=== PATIENT | male | born 1975 | race Hispanic/Latino ===

== ENCOUNTER 2024-02-22 08:00 | Inpatient (IN) | payer BC ==
[2024-02-22] VITALS (13 sets, daily range): BP systolic 125–152; BP diastolic 77–97; PULSE 67–91; RESP 16–20; O2SAT 95–99
[~2024-02-22] VITALS: Ht 167.6 cm; Wt 130.5 kg
[2024-02-22] MEDS ORDERED: NITROGLYCERIN 50MG VIAL ONE (09:44)
[2024-02-22] MEDS ORDERED: HEPARIN 10,000 UNIT/10ML (1,000 UNIT/ML) VIAL ONE (09:44)
[2024-02-22] MEDS ORDERED: LIDOCAINE HCL 400MG/20ML VIAL ONE (09:44)
[2024-02-22] MEDS ORDERED: IOHEXOL 350 MG/ML 100ML INFUS..BTL IV ONE (09:44)
[2024-02-22] MEDS ORDERED: VERAPAMIL HCL 2.5 MG/ML VIAL ONE (09:56)
[2024-02-22] MEDS ORDERED: MIDAZOLAM HCL 1 MG/ML 2ML VIAL ONE (10:21)
[2024-02-22] MEDS ORDERED: FENTANYL CITRATE PF 50 MCG/1 ML 2ML VIAL ONE (10:21)
[2024-02-22] MEDS ORDERED: NICARDIPINE 25MG INJ IV ONE (10:45)
[2024-02-22] MEDS ORDERED: GLUCAGON 1MG KIT 1 MG ML IM PRN (12:00)
[2024-02-22] MEDS ORDERED: DEXTROSE 50%-WATER 50 ML DISP.SYRIN IV PRN (12:00)
[2024-02-22] MEDS: 0.9%NACL 1000ML 1,000 ML IV SCH (14:03)
[2024-02-22] MEDS: METOPROLOL TARTRATE 25 MG TAB PO SCH (14:03)
[2024-02-22] MEDS ORDERED: METF750T46 PO (14:05)
[2024-02-22] MEDS ORDERED: LISI40TA9 PO (14:05)
[2024-02-22] MEDS ORDERED: HYDR12.54 (14:05)
[2024-02-22] MEDS: POTASSIUM CHLORIDE 10% ELIXIR 20 MEQ/15 ML UDCUP ONE (14:07)
[2024-02-22] MEDS ORDERED: NITROGLYCERIN 0.4 MG SL TAB SL PRN (15:30)
[2024-02-22 15:54] LABS: BASOPHILS # (AUTO) 0.04 K/uL (0.00-0.20); BASOPHILS % (AUTO) 0.4 % (0.0-5.0); EOSINOPHILS # (AUTO) 0.17 K/uL (0.00-0.70); EOSINOPHILS % (AUTO) 1.9 % (0.0-8.0); HEMATOCRIT 41.5 % (42-54); IMMATURE GRANULOCYTE ABSOLUTE 0.03 K/uL (0-1); LYMPHOCYTES # (AUTO) 2.3 K/uL (1.0-4.8); LYMPHOCYTES % (AUTO) 24.9 % (21.0-51.0); MEAN CORPUSCULAR HEMOGLOBIN 28.9 pg (27.0-33.0); MEAN CORPUSCULAR HGB CONC 33.7 g/dL (32.0-36.0); MEAN CORPUSCULAR VOLUME 85.7 fL (79-99); MONOCYTES # (AUTO) 0.7 K/uL (0.1-1.0); MONOCYTES % (AUTO) 7.9 % (3.0-13.0); NEUTROPHILS # (AUTO) 5.8 K/uL (1.8-7.7); NEUTROPHILS % (AUTO) 64.6 % (40.0-77.0); PLATELET COUNT (AUTO) 226 K/uL (130-400); RED BLOOD CELL COUNT(AUTO) 4.84 MIL/uL (4.50-6.20); RED CELL DISTRIBUTION WIDTH 13.6 % (11.0-15.5)
[2024-02-22 16:05] LABS: INR 1.04 (0.85-1.15); PROTHROMBIN TIME 11.2 SEC (9.6-11.6)
[2024-02-22 16:06] LABS: PARTIAL THROMBOPLASTIN TIME 29.1 SEC (26.3-35.5)
[2024-02-22 16:12] LABS: HEMOGLOBIN A1C 9.3 % (4.0-6.0)
[2024-02-22 16:17] LABS: ALBUMIN 3.5 g/dL (3.5-5.0); BILIRUBIN,TOTAL 1.1 mg/dL (0.2-1.0); CREATININE 1.1 mg/dL (0.5-1.3); MAGNESIUM 1.7 mg/dL (1.80-2.40); POTASSIUM 3.5 mmol/L (3.5-5.1); THYROID STIMULATING HORMONE 2.23 uIU/mL (0.36-3.74); TOTAL PROTEIN, SERUM 6.9 g/dL (6.0-8.3)
[2024-02-22] MEDS ORDERED: HEPARIN 5,000 UNIT VIAL IV PRN (16:30)
[2024-02-22] MEDS: INSULIN HUMULIN R 100 UNIT/ML 3ML SQ SCH (16:47)
[2024-02-22] MEDS: MAGNESIUM 2GM PREMIX 50ML 50 ML IV SCH (16:53)
[2024-02-22] MEDS: POTASSIUM CHLORIDE 10% ELIXIR 20 MEQ/15 ML UDCUP PO PRN (16:53)
[2024-02-22] MEDS ORDERED: POTASSIUM CHLORIDE 20MEQ/100ML 100 ML IV PRN (17:00)
[2024-02-22] MEDS: ATORVASTATIN 20 MG TABLET PO SCH (20:01)
[2024-02-22] MEDS: FAMOTIDINE 20MG VIAL IV SCH (20:02)
[2024-02-22] MEDS: HEPARIN 25,000 UNITS/250ML D5W 250 ML IV SCH (20:16)
[2024-02-23] VITALS (8 sets, daily range): BP systolic 133–171; BP diastolic 76–109; PULSE 67–89; RESP 18–22; O2SAT 96–98
[2024-02-23 03:27] LABS: ABG BASE EXCESS 2.5 mmol/L (-2.0-3.0); ABG HCO3 26.5 mmol/L (21.0-28.0); ABG OXYGEN SATURATION 94.7 % (95.0-99.0); ABG PCO2 39 mmHg (35-48); ABG PH 7.453 (7.35-7.450); PO2, ARTERIAL BG 69.3 mmHg (83.0-108.0); VENT MODE, BG RA (ROOM AIR)
[2024-02-23 03:37] LABS: BASOPHILS # (AUTO) 0.05 K/uL (0.00-0.20); BASOPHILS % (AUTO) 0.5 % (0.0-5.0); EOSINOPHILS # (AUTO) 0.34 K/uL (0.00-0.70); EOSINOPHILS % (AUTO) 3.2 % (0.0-8.0); HEMATOCRIT 40.9 % (42-54); IMMATURE GRANULOCYTE ABSOLUTE 0.04 K/uL (0-1); LYMPHOCYTES # (AUTO) 3.2 K/uL (1.0-4.8); LYMPHOCYTES % (AUTO) 29.8 % (21.0-51.0); MEAN CORPUSCULAR HEMOGLOBIN 29.6 pg (27.0-33.0); MEAN CORPUSCULAR HGB CONC 34.7 g/dL (32.0-36.0); MEAN CORPUSCULAR VOLUME 85.2 fL (79-99); MONOCYTES # (AUTO) 0.6 K/uL (0.1-1.0); NEUTROPHILS # (AUTO) 6.4 K/uL (1.8-7.7); NEUTROPHILS % (AUTO) 60.1 % (40.0-77.0); PLATELET COUNT (AUTO) 215 K/uL (130-400); RED CELL DISTRIBUTION WIDTH 13.4 % (11.0-15.5); WHITE BLOOD COUNT (AUTO) 10.7 K/uL (4.8-10.8)
[2024-02-23 03:51] LABS: ALBUMIN 3.4 g/dL (3.5-5.0); BILIRUBIN,TOTAL 1.2 mg/dL (0.2-1.0); CREATININE 1.2 mg/dL (0.5-1.3); MAGNESIUM 2.1 mg/dL (1.80-2.40); POTASSIUM 3.7 mmol/L (3.5-5.1)
[2024-02-23] MEDS: KCL 20 MEQ ERTAB PO PRN (06:26)
[2024-02-23] MEDS: ASPIRIN 81MG CHEW TAB PO SCH (09:40)
[2024-02-23] MEDS: FUROSEMIDE 20MG VIAL IV SCH (09:41)
[2024-02-23] MEDS: ISOSORBIDE MONO 30MG SR TAB PO SCH (09:41)
[2024-02-23] MEDS: LISINOPRIL 40 MG TABLET PO SCH (10:18)
[2024-02-24] VITALS (7 sets, daily range): BP systolic 133–164; BP diastolic 85–98; PULSE 60–95; RESP 18; O2SAT 99
[2024-02-24 03:56] LABS: MEAN CORPUSCULAR HEMOGLOBIN 29.2 pg (27.0-33.0); MEAN CORPUSCULAR HGB CONC 34.1 g/dL (32.0-36.0); MEAN CORPUSCULAR VOLUME 85.4 fL (79-99); RED BLOOD CELL COUNT(AUTO) 4.8 MIL/uL (4.50-6.20); RED CELL DISTRIBUTION WIDTH 13.4 % (11.0-15.5); WHITE BLOOD COUNT (AUTO) 8.5 K/uL (4.8-10.8)
[2024-02-24 04:10] LABS: ALBUMIN 3.5 g/dL (3.5-5.0); BILIRUBIN,TOTAL 1.1 mg/dL (0.2-1.0); CREATININE 1.1 mg/dL (0.5-1.3); POTASSIUM 3.7 mmol/L (3.5-5.1)
[2024-02-24] MEDS: BUDESONIDE 0.25 MG/2 ML INH IH SCH (06:00)
[2024-02-24] MEDS ORDERED: LISINOPRIL 40 MG TABLET PO SCH (09:00)
[2024-02-24] MEDS: FUROSEMIDE 20 MG TABLET PO SCH (09:49)
[2024-02-24] MEDS: PREDNISONE 20 MG TABLET PO SCH (09:51)
[2024-02-24] MEDS: CEFAZOLIN SODIUM 1 GM VIAL IVPB SCH (22:00)
[2024-02-24] MEDS ORDERED: VANCOMYCIN 1.5 GM/250 ML BAG 250 ML IV SCH (22:30)
[2024-02-25] VITALS (21 sets, daily range): BP systolic 110–167; BP diastolic 44–107; PULSE 65–122; RESP 12–27; TEMP 97.2; O2SAT 96–100
[2024-02-25 03:56] LABS: HEMATOCRIT 41.9 % (42-54); MEAN CORPUSCULAR HGB CONC 33.9 g/dL (32.0-36.0); MEAN CORPUSCULAR VOLUME 85.5 fL (79-99); RED BLOOD CELL COUNT(AUTO) 4.9 MIL/uL (4.50-6.20); RED CELL DISTRIBUTION WIDTH 13.2 % (11.0-15.5); WHITE BLOOD COUNT (AUTO) 9.3 K/uL (4.8-10.8)
[2024-02-25 04:05] LABS: CREATININE 1.2 mg/dL (0.5-1.3); INR 1.05 (0.85-1.15); POTASSIUM 3.6 mmol/L (3.5-5.1); PROTHROMBIN TIME 11.3 SEC (9.6-11.6)
[2024-02-25 04:06] LABS: PARTIAL THROMBOPLASTIN TIME 68.3 SEC (26.3-35.5)
[2024-02-25 04:10] LABS: ALBUMIN 3.6 g/dL (3.5-5.0); BILIRUBIN,TOTAL 1.2 mg/dL (0.2-1.0); MAGNESIUM 1.9 mg/dL (1.80-2.40); PHOSPHORUS 3.6 mg/dL (2.5-4.9); TOTAL PROTEIN, SERUM 7.1 g/dL (6.0-8.3)
[2024-02-25 04:12] LABS: HEMOGLOBIN A1C 9.7 % (4.0-6.0)
[2024-02-25] MEDS ORDERED: NOREPINEPHRIN 8MG/250ML NS 250 ML IV PRN (09:00)
[2024-02-25] MEDS ORDERED: VANCOMYCIN 1.5 GM/250 ML BAG 250 ML IV SCH (09:00)
[2024-02-25] MEDS ORDERED: AMINOCAPROIC ACID 5,000MG VIAL 15,000 MG in 0.9% NACL 500ML IV.SOLN 420 ML IV PRN (09:00)
[2024-02-25] MEDS ORDERED: EPINEPHRINE PF 1MG (1:1,000) 10 MG in 0.9% NACL 250ML 240 ML IV PRN ×2 (09:00→17:30)
[2024-02-25] MEDS ORDERED: CEFAZOLIN SODIUM 1 GM VIAL ONE ×2 (09:04→17:55)
[2024-02-25] MEDS ORDERED: PAPAVERINE HCL 30 MG/ML 2ML VIAL ONE (09:04)
[2024-02-25] MEDS ORDERED: NITROGLYCERIN 50MG/D5W 250ML 1 BOT ONE (09:05)
[2024-02-25] MEDS ORDERED: SODIUM BICARB 50MEQ 50ML VIAL 200 ML ONE (17:05)
[2024-02-25] MEDS ORDERED: EPINEPHRINE PF 1MG (1:1,000) 1 MG/ML AMP ONE (17:05)
[2024-02-25] MEDS ORDERED: LIDOCAINE PF 100MG/5ML (2%) SYRINGE 5ML ONE (17:05)
[2024-02-25] MEDS ORDERED: HEPARIN 10,000 UNIT/10ML (1,000 UNIT/ML) VIAL ONE ×4 (17:05→19:09)
[2024-02-25] MEDS ORDERED: PROTAMINE SULFATE 10 MG/ML 25ML VIAL IV ONE (17:05)
[2024-02-25] MEDS ORDERED: FENTANYL CITRATE PF 50 MCG/1 ML 20ML VIAL IJ ONE (17:06)
[2024-02-25] MEDS ORDERED: PROPOFOL 10 MG/ML 20ML VIAL IV ONE (17:06)
[2024-02-25] MEDS ORDERED: MIDAZOLAM HCL 1 MG/ML 2ML VIAL ONE (17:06)
[2024-02-25] MEDS ORDERED: AMINOCAPROIC ACID 5,000MG VIAL ONE (17:06)
[2024-02-25] MEDS ORDERED: GLYCOPYRROLATE 0.2 MG/ML 5 ML VIAL ONE (17:06)
[2024-02-25] MEDS ORDERED: NOREPINEPHRINE BITARTRATE 1 MG/1 ML ML IV ONE (17:06)
[2024-02-25] MEDS ORDERED: ROCURONIUM BROMIDE 10MG/1ML 5ML VL ONE (17:07)
[2024-02-25] MEDS ORDERED: KETAMINE 50MG/ML SYRINGE 50 MG/ML DISP.SYRIN ONE ×2 (17:07→20:27)
[2024-02-25] MEDS ORDERED: NITROGLYCERIN 50MG/D5W 250ML 250 BOT IV SCH (17:30)
[2024-02-25] MEDS ORDERED: GLUCAGON 1MG KIT 1 MG ML IM PRN (17:30)
[2024-02-25] MEDS ORDERED: LACTULOSE 20 GM/30 ML UDCUP PO PRN (17:30)
[2024-02-25] MEDS ORDERED: AMINOCAPROIC ACID 5,000MG VIAL 15,000 MG in 0.9% NACL 250ML 250 ML IV SCH (17:30)
[2024-02-25] MEDS ORDERED: PROPOFOL 1000 MG/100 ML 100 ML IV PRN (17:30)
[2024-02-25] MEDS ORDERED: DEXTROSE 50%-WATER 50 ML DISP.SYRIN IV PRN (17:30)
[2024-02-25] MEDS ORDERED: ALBUMIN (HUMAN) 5% 250 ML IV PRN (17:30)
[2024-02-25] MEDS ORDERED: 0.9% NACL 500ML IV.SOLN 500 ML IV SCH (17:30)
[2024-02-25] MEDS ORDERED: ACETAMINOPHEN 325 MG TAB PO PRN (17:30)
[2024-02-25] MEDS: FUROSEMIDE 20MG VIAL IV SCH (17:30)
[2024-02-25] MEDS ORDERED: MAGNESIUM HYDROXIDE 30 ML/UDCUP PO PRN (17:30)
[2024-02-25] MEDS ORDERED: ONDANSETRON 4MG INJ IV PRN (17:30)
[2024-02-25] MEDS ORDERED: 0.9%NACL 10ML VIAL IVP PRN (17:30)
[2024-02-25] MEDS ORDERED: MORPHINE 2 MG SYG IV PRN (17:30)
[2024-02-25] MEDS ORDERED: TRAMADOL HCL 50 MG TABLET PO PRN (17:30)
[2024-02-25] MEDS ORDERED: NOREPINEPHRINE BITARTRATE 8 MG in DEXTROSE 5%-WATER 250 ML IV PRN (17:30)
[2024-02-25] MEDS ORDERED: ACETAMINOPHEN 650 MG SUPPOSITORY RC PRN (17:30)
[2024-02-25] MEDS: CEFAZOLIN SODIUM 3 GM VIAL IVPB ONE (18:00)
[2024-02-25] MEDS ORDERED: TRIAMCINOLONE ACETONIDE 40 MG/ML 1ML VIAL ONE (18:06)
[2024-02-25] MEDS ORDERED: SOLU-MEDROL 40MG VIAL ONE (18:06)
[2024-02-25 18:13] LABS: ABG BASE EXCESS -8.8 mmol/L (-2.0-3.0); ABG HCO3 17.1 mmol/L (21.0-28.0); ABG OXYGEN SATURATION 97.7 % (95.0-99.0); ABG PCO2 37 mmHg (35-48); ABG PH 7.284 (7.35-7.450); CARBON MONOXIDE 0.5; DEVICE COMMENT 1; HHb 2.3; PO2, ARTERIAL BG 115.8 mmHg (83.0-108.0)
[2024-02-25] MEDS ORDERED: SODIUM BICARB 50MEQ 50ML VIAL 100 ML ONE (18:19)
[2024-02-25 19:00] LABS: ABG BASE EXCESS -4.3 mmol/L (-2.0-3.0); ABG OXYGEN SATURATION 97.6 % (95.0-99.0); ABG PCO2 39 mmHg (35-48); ABG PH 7.344 (7.35-7.450); CARBON MONOXIDE 0.1; DEVICE COMMENT 2; HHb 2.4; PO2, ARTERIAL BG 109.1 mmHg (83.0-108.0)
[2024-02-25 19:47] LABS: ABG OXYGEN SATURATION 84.4 % (95.0-99.0); BASE EXCESS,VENOUS BLOOD GAS -4.1 (-2.0-3.0); DEVICE COMMENT 3; HCO3,VENOUS BLOOD GAS 22.9 (21.0-28.0); PCO2,VENOUS BLOOD GAS 49 (32-45); PH,VENOUS BLOOD GAS 7.286 (7.350-7.450); PO2,VENOUS BLOOD GAS 53.9 mmHg (35.0-45.0)
[2024-02-25 20:23] LABS: ABG BASE EXCESS -4.4 mmol/L (-2.0-3.0); ABG HCO3 20.2 mmol/L (21.0-28.0); ABG OXYGEN SATURATION 96.6 % (95.0-99.0); ABG PCO2 36 mmHg (35-48); CARBON MONOXIDE 0.1; DEVICE COMMENT 3; HHb 3.4; PO2, ARTERIAL BG 94.6 mmHg (83.0-108.0)
[2024-02-25] MEDS ORDERED: MIDAZOLAM HCL 1 MG/ML 5ML VIAL ONE (20:27)
[2024-02-25] MEDS: METOPROLOL TARTRATE 25 MG TAB PO SCH (21:00)
[2024-02-25 21:01] LABS: ABG BASE EXCESS -5.9 mmol/L (-2.0-3.0); ABG HCO3 20.2 mmol/L (21.0-28.0); ABG OXYGEN SATURATION 95.2 % (95.0-99.0); ABG PCO2 42 mmHg (35-48); CARBON MONOXIDE 0.4; HHb 4.8; PO2, ARTERIAL BG 90.2 mmHg (83.0-108.0); VENT MODE, BG SIMV PS 10 (ROOM AIR)
[2024-02-25] MEDS: SODIUM BICARB 50MEQ 50ML VIAL IV PRN (21:06)
[2024-02-25] MEDS: POTASSIUM CHLORIDE 20MEQ/100ML 100 ML IV PRN (21:09)
[2024-02-25 21:13] LABS: HEMATOCRIT 36.7 % (42-54); MEAN CORPUSCULAR HEMOGLOBIN 28.9 pg (27.0-33.0); MEAN CORPUSCULAR HGB CONC 34.1 g/dL (32.0-36.0); RED BLOOD CELL COUNT(AUTO) 4.32 MIL/uL (4.50-6.20); RED CELL DISTRIBUTION WIDTH 13.3 % (11.0-15.5); WHITE BLOOD COUNT (AUTO) 25.1 K/uL (4.8-10.8)
[2024-02-25 21:25] LABS: INR 1.18 (0.85-1.15); PROTHROMBIN TIME 12.6 SEC (9.6-11.6)
[2024-02-25 21:26] LABS: CREATININE 1.3 mg/dL (0.5-1.3); MAGNESIUM 1.7 mg/dL (1.80-2.40); PARTIAL THROMBOPLASTIN TIME 22.6 SEC (26.3-35.5); PHOSPHORUS 6.9 mg/dL (2.5-4.9)
[2024-02-25] MEDS: INSULIN REGULAR, HUMAN 3ML 100 UNIT in 0.9%NACL 100ML 99 ML IV SCH (22:00)
[2024-02-25] MEDS: MORPHINE 4 MG SYG IV PRN (22:06)
[2024-02-25 22:12] LABS: ABG BASE EXCESS -4.9 mmol/L (-2.0-3.0); ABG HCO3 20.8 mmol/L (21.0-28.0); ABG OXYGEN SATURATION 95.7 % (95.0-99.0); ABG PCO2 41 mmHg (35-48); ABG PH 7.326 (7.35-7.450); CARBON MONOXIDE 0.5; HHb 4.3; PO2, ARTERIAL BG 89.9 mmHg (83.0-108.0); VENT MODE, BG SIMV PS10 (ROOM AIR)
[2024-02-25] MEDS: CEFAZOLIN SODIUM 2 GM VIAL IVPB SCH (22:57)
[2024-02-25] MEDS: DEXMEDETOMIDINE 400MCG/NS100ML IV SCH (22:57)
[2024-02-25] MEDS: ACETAMINOPHEN 1,000 MG/100 ML VIAL IV SCH (22:58)
[2024-02-25] MEDS: FAMOTIDINE 20MG VIAL IV SCH (22:58)
[2024-02-25] MEDS: DOCUSATE SODIUM 100 MG CAP PO ONE (22:59)
[2024-02-25] MEDS: ASPIRIN 81MG CHEW TAB NG ONE (22:59)
[2024-02-25] MEDS: ATORVASTATIN 40 MG TABLET PO SCH (22:59)
[2024-02-25 23:15] LABS: ABG BASE EXCESS -6.3 mmol/L (-2.0-3.0); ABG HCO3 19.1 mmol/L (21.0-28.0); ABG OXYGEN SATURATION 94.9 % (95.0-99.0); ABG PCO2 38 mmHg (35-48); ABG PH 7.322 (7.35-7.450); CARBON MONOXIDE 0.5; HHb 5.1; PO2, ARTERIAL BG 84.2 mmHg (83.0-108.0); VENT MODE, BG SIMV (ROOM AIR)
[2024-02-25] MEDS: CALCIUM GLUC 1GM 1 GM in 0.9%NACL 50ML 50 ML IV PRN (23:24)
[2024-02-26] VITALS (135 sets, daily range): BP systolic 88–163; BP diastolic 57–136; PULSE 91–122; RESP 5–45; TEMP 98.4–99.9; O2SAT 96–100
[2024-02-26 00:02] LABS: ABG BASE EXCESS -3.8 mmol/L (-2.0-3.0); ABG HCO3 20.4 mmol/L (21.0-28.0); ABG OXYGEN SATURATION 98.2 % (95.0-99.0); ABG PCO2 34 mmHg (35-48); CARBON MONOXIDE 0.2; HHb 1.8; PO2, ARTERIAL BG 140.5 mmHg (83.0-108.0); VENT MODE, BG SIMV PS 10 (ROOM AIR)
[2024-02-26 01:06] LABS: ABG BASE EXCESS -3.7 mmol/L (-2.0-3.0); ABG HCO3 20.6 mmol/L (21.0-28.0); ABG PCO2 35 mmHg (35-48); ABG PH 7.387 (7.35-7.450); CARBON MONOXIDE 0.3; PO2, ARTERIAL BG 274.1 mmHg (83.0-108.0); VENT MODE, BG SIMV PS 10 (ROOM AIR)
[2024-02-26 02:03] LABS: ABG BASE EXCESS -3.2 mmol/L (-2.0-3.0); ABG HCO3 20.8 mmol/L (21.0-28.0); ABG OXYGEN SATURATION 98.6 % (95.0-99.0); ABG PCO2 34 mmHg (35-48); ABG PH 7.402 (7.35-7.450); CARBON MONOXIDE 0.1; HHb 1.4; PO2, ARTERIAL BG 183.7 mmHg (83.0-108.0); VENT MODE, BG SIMV PS 10 (ROOM AIR)
[2024-02-26] MEDS: CALCIUM GLUC 1GM/10ML VIAL ONE ×3 (02:08→09:12)
[2024-02-26] MEDS: POTASSIUM CHLORIDE 10% ELIXIR 20 MEQ/15 ML UDCUP PO PRN (02:09)
[2024-02-26 03:01] LABS: ABG BASE EXCESS -1.5 mmol/L (-2.0-3.0); ABG HCO3 22.3 mmol/L (21.0-28.0); ABG OXYGEN SATURATION 98.7 % (95.0-99.0); ABG PCO2 35 mmHg (35-48); ABG PH 7.424 (7.35-7.450); CARBON MONOXIDE 0.3; HHb 1.3; PO2, ARTERIAL BG 202.7 mmHg (83.0-108.0); VENT MODE, BG SIMV PS 10 (ROOM AIR)
[2024-02-26 04:00] LABS: ABG HCO3 23.8 mmol/L (21.0-28.0); ABG OXYGEN SATURATION 98.3 % (95.0-99.0); ABG PCO2 36 mmHg (35-48); ABG PH 7.436 (7.35-7.450); CARBON MONOXIDE 0.3; HHb 1.7; PO2, ARTERIAL BG 155.1 mmHg (83.0-108.0); VENT MODE, BG SIMV PS 10 (ROOM AIR)
[2024-02-26 04:57] LABS: HEMATOCRIT 37.4 % (42-54); MEAN CORPUSCULAR HGB CONC 34.2 g/dL (32.0-36.0); MEAN CORPUSCULAR VOLUME 84.6 fL (79-99); RED BLOOD CELL COUNT(AUTO) 4.42 MIL/uL (4.50-6.20); RED CELL DISTRIBUTION WIDTH 13.7 % (11.0-15.5); WHITE BLOOD COUNT (AUTO) 22.5 K/uL (4.8-10.8)
[2024-02-26 05:08] LABS: ABG BASE EXCESS 2.6 mmol/L (-2.0-3.0); ABG HCO3 26.3 mmol/L (21.0-28.0); ABG PCO2 38 mmHg (35-48); ABG PH 7.461 (7.35-7.450); CARBON MONOXIDE 0.3; PO2, ARTERIAL BG 95.4 mmHg (83.0-108.0); VENT MODE, BG SIMV PS 10 (ROOM AIR)
[2024-02-26 05:15] LABS: INR 1.08 (0.85-1.15); PROTHROMBIN TIME 11.6 SEC (9.6-11.6)
[2024-02-26 05:16] LABS: PARTIAL THROMBOPLASTIN TIME 22.1 SEC (26.3-35.5)
[2024-02-26 05:22] LABS: CREATININE 1.8 mg/dL (0.5-1.3); MAGNESIUM 1.8 mg/dL (1.80-2.40); POTASSIUM 3.7 mmol/L (3.5-5.1)
[2024-02-26 05:24] LABS: PHOSPHORUS 0.9 mg/dL (2.5-4.9)
[2024-02-26] MEDS: MAGNESIUM 2GM PREMIX 50ML 50 ML IV PRN (06:29)
[2024-02-26] MEDS ORDERED: MORPHINE 2 MG SYG IV PRN (06:30)
[2024-02-26] MEDS: POTASSIUM PHOS 15 mMOL+NS250ML 250 ML IV PRN (06:35)
[2024-02-26 06:43] LABS: ABG BASE EXCESS 3.8 mmol/L (-2.0-3.0); ABG HCO3 27.1 mmol/L (21.0-28.0); ABG OXYGEN SATURATION 97.4 % (95.0-99.0); ABG PCO2 37 mmHg (35-48); ABG PH 7.488 (7.35-7.450); CARBON MONOXIDE 0.3; HHb 2.6; PO2, ARTERIAL BG 101.7 mmHg (83.0-108.0); VENT MODE, BG SIMV (ROOM AIR)
[2024-02-26 08:10] LABS: ABG BASE EXCESS 3.7 mmol/L (-2.0-3.0); ABG HCO3 28.4 mmol/L (21.0-28.0); ABG OXYGEN SATURATION 94.7 % (95.0-99.0); ABG PCO2 43 mmHg (35-48); ABG PH 7.434 (7.35-7.450); CARBON MONOXIDE 0.4; HHb 5.3; PO2, ARTERIAL BG 74.7 mmHg (83.0-108.0); VENT MODE, BG CAFM (ROOM AIR)
[2024-02-26 08:41] LABS: MAGNESIUM 2.2 mg/dL (1.80-2.40)
[2024-02-26] MEDS: 0.9%NACL 1000ML 1,000 ML IV SCH (09:14)
[2024-02-26] MEDS: NOREPINEPHRIN 8MG/250ML NS 250 ML IV SCH (11:33)
[2024-02-26] MEDS: NOREPINEPHRIN 8MG/250ML NS 250 ML IV ONE (11:34)
[2024-02-26] MEDS: TRAMADOL HCL 50 MG TABLET PO PRN (12:14)
[2024-02-26] MEDS: ACETAMINOPHEN 325 MG TAB PO PRN (23:01)
[2024-02-27] VITALS (139 sets, daily range): BP systolic 83–230; BP diastolic 45–201; PULSE 81–113; RESP 4–39; TEMP 98.2–99.4; O2SAT 92–94
[2024-02-27 03:12] LABS: HEMATOCRIT 32.8 % (42-54); MEAN CORPUSCULAR HEMOGLOBIN 29.2 pg (27.0-33.0); MEAN CORPUSCULAR HGB CONC 33.8 g/dL (32.0-36.0); MEAN CORPUSCULAR VOLUME 86.3 fL (79-99); RED BLOOD CELL COUNT(AUTO) 3.8 MIL/uL (4.50-6.20); RED CELL DISTRIBUTION WIDTH 14.6 % (11.0-15.5); WHITE BLOOD COUNT (AUTO) 16.6 K/uL (4.8-10.8)
[2024-02-27 03:26] LABS: CREATININE 1.2 mg/dL (0.5-1.3); MAGNESIUM 1.7 mg/dL (1.80-2.40); PHOSPHORUS 4.1 mg/dL (2.5-4.9); POTASSIUM 3.6 mmol/L (3.5-5.1)
[2024-02-27] MEDS: ACETAMINOPHEN 1,000 MG/100 ML VIAL IV ONE (04:27)
[2024-02-27] MEDS: INSULIN HUMULIN R 100 UNIT/ML 3ML SQ SCH (07:19)
[2024-02-27] MEDS: FUROSEMIDE 20MG VIAL IV SCH (08:07)
[2024-02-27] MEDS ORDERED: FUROSEMIDE 20 MG TABLET PO SCH (09:00)
[2024-02-27] MEDS ORDERED: MAGNESIUM 2GM PREMIX 50ML 50 ML IV SCH (11:00)
[2024-02-27] MEDS: FUROSEMIDE 20MG VIAL IV ONE (21:23)
[2024-02-27] MEDS: DOCUSATE SODIUM 100 MG CAP PO ONE (21:23)
[2024-02-27] MEDS: METOPROLOL TARTRATE 25 MG TAB PO SCH (21:24)
[2024-02-28] VITALS (69 sets, daily range): BP systolic 114–179; BP diastolic 54–105; PULSE 82–105; RESP 4–30; TEMP 98.4–99.3; O2SAT 94–97
[2024-02-28 03:40] LABS: HEMATOCRIT 36.9 % (42-54); MEAN CORPUSCULAR HEMOGLOBIN 29.6 pg (27.0-33.0); MEAN CORPUSCULAR HGB CONC 32.8 g/dL (32.0-36.0); MEAN CORPUSCULAR VOLUME 90.2 fL (79-99); RED BLOOD CELL COUNT(AUTO) 4.09 MIL/uL (4.50-6.20); RED CELL DISTRIBUTION WIDTH 14.2 % (11.0-15.5); WHITE BLOOD COUNT (AUTO) 20.6 K/uL (4.8-10.8)
[2024-02-28 03:47] LABS: CREATININE 1.7 mg/dL (0.5-1.3); POTASSIUM 4.6 mmol/L (3.5-5.1)
[2024-02-28] MEDS: ENOXAPARIN SODIUM 30 MG/0.3 ML SQ SCH (08:43)
[2024-02-28] MEDS: METOPROLOL TARTRATE 25 MG TAB PO SCH (09:00)
[2024-02-28] MEDS: METOPROLOL TARTRATE 25 MG TAB PO ONE (09:24)
[2024-02-28] MEDS: CEFTRIAXONE 1G VIAL IVPB SCH (11:19)
[2024-02-28] MEDS: INSULIN GLARGINE 100 UNITS/ML 10 ML VIAL SQ SCH (11:19)
[2024-02-28] MEDS: INSULIN HUMULIN R 100 UNIT/ML 3ML SQ SCH (11:19)
[2024-02-28] MEDS: FUROSEMIDE 20MG VIAL IV SCH (13:38)
[2024-02-28 16:00] LABS: CREATININE 1.9 mg/dL (0.5-1.3); POTASSIUM 4.1 mmol/L (3.5-5.1)
[2024-02-28] MEDS: HYDRALAZINE 20MG/ML VIAL IV PRN (18:15)
[2024-02-28] MEDS ORDERED: DOBUTAMINE HCL 1,000 MG in DEXTROSE 5%-WATER 250 ML IV SCH (19:00)
[2024-02-28] MEDS: FUROSEMIDE 100MG VIAL 100 MG in 0.9%NACL 100ML 100 ML IV SCH (21:42)
[2024-02-28] MEDS: DOBUTAMINE 250MG/D5 250ML 250 ML IV ONE (21:43)
[2024-02-29] VITALS (89 sets, daily range): BP systolic 110–169; BP diastolic 43–90; PULSE 78–120; RESP 5–41; TEMP 98.4–98.8; O2SAT 96–100
[2024-02-29 03:59] LABS: MEAN CORPUSCULAR HEMOGLOBIN 29.5 pg (27.0-33.0); MEAN CORPUSCULAR HGB CONC 33.4 g/dL (32.0-36.0); MEAN CORPUSCULAR VOLUME 88.2 fL (79-99); NUCLEATED RED BLOOD CELLS 0.2 % (0.0-0.19); RED BLOOD CELL COUNT(AUTO) 3.97 MIL/uL (4.50-6.20); RED CELL DISTRIBUTION WIDTH 13.7 % (11.0-15.5); WHITE BLOOD COUNT (AUTO) 16.6 K/uL (4.8-10.8)
[2024-02-29 04:12] LABS: CREATININE 1.5 mg/dL (0.5-1.3); POTASSIUM 3.3 mmol/L (3.5-5.1)
[2024-02-29] MEDS: DOBUTAMINE 250MG/D5 250ML 250 ML IV SCH (08:54)
[2024-02-29] MEDS: INSULIN GLARGINE 100 UNITS/ML 10 ML VIAL SQ ONE (11:27)
[2024-02-29] MEDS: INSULIN GLARGINE 100 UNITS/ML 10 ML VIAL SQ SCH (21:19)
[2024-03-01] VITALS (56 sets, daily range): BP systolic 106–160; BP diastolic 53–110; PULSE 70–92; RESP 10–37; TEMP 98.2–98.8; O2SAT 96–98
[2024-03-01 04:32] LABS: MEAN CORPUSCULAR HEMOGLOBIN 29.4 pg (27.0-33.0); MEAN CORPUSCULAR HGB CONC 33.9 g/dL (32.0-36.0); MEAN CORPUSCULAR VOLUME 86.6 fL (79-99); RED BLOOD CELL COUNT(AUTO) 3.81 MIL/uL (4.50-6.20); RED CELL DISTRIBUTION WIDTH 13.4 % (11.0-15.5)
[2024-03-01 04:47] LABS: CREATININE 1.4 mg/dL (0.5-1.3); MAGNESIUM 1.8 mg/dL (1.80-2.40)
[2024-03-01 04:55] LABS: POTASSIUM 2.5 mmol/L (3.5-5.1)
[2024-03-01] MEDS: KCL 20 MEQ ERTAB PO SCH (08:51)
[2024-03-01 12:34] LABS: MAGNESIUM 2.5 mg/dL (1.80-2.40)
[2024-03-01] MEDS: KCL 20 MEQ ERTAB PO PRN (13:22)
[2024-03-02 00:54] VITALS: PULSE 78; RESP 18; O2SAT 98
[2024-03-02 03:49] VITALS: BP 118/81; PULSE 74; RESP 20
[2024-03-02 06:46] VITALS: PULSE 81; RESP 20
[2024-03-02 06:50] VITALS: PULSE 81; RESP 20; O2SAT 95
[2024-03-02 07:57] VITALS: BP 118/69; PULSE 78; RESP 16
[2024-03-02 09:34] LABS: ALBUMIN 2.3 g/dL (3.5-5.0); CREATININE 1.3 mg/dL (0.5-1.3); POTASSIUM 3.1 mmol/L (3.5-5.1); TOTAL PROTEIN, SERUM 6.4 g/dL (6.0-8.3)
[2024-03-02] MEDS ORDERED: ASPI-1005 PO (10:08)
[2024-03-02] MEDS ORDERED: METO25 PO (10:08)
[2024-03-02] MEDS ORDERED: ATOR40TA69 PO (10:08)
[2024-03-02] MEDS ORDERED: LOSA-417 PO (10:08)
[2024-03-02] MEDS ORDERED: FURO20TA6 PO (10:08)
[2024-03-02] MEDS ORDERED: DAPA10TA PO (10:11)
[2024-03-02 12:00] VITALS: BP 122/64; PULSE 74; RESP 16
[2024-03-03] MEDS ORDERED: FUROSEMIDE 20 MG TABLET PO SCH (09:00)
[2024-03-03] MEDS ORDERED: LOSARTAN 25 MG TABLET PO SCH (09:00)
== END 2024-03-02 15:45 | disposition home health service (06) | DRG 233 ==
LOC: 2AH 09:11 → 2CV 02-25 17:58 → 2BH 02-27 05:00 → 2AH 03-01 13:55
PROVIDERS: ADMIT Internal Medicine; ATTEND Internal Medicine
PROC: 4A023N7 Measurement of Cardiac Sampling and Pressure, Left Heart, Percutaneous Approach (ICD-10-PCS; 2024-02-22)
PROC: B2111ZZ Fluoroscopy of Multiple Coronary Arteries using Low Osmolar Contrast (ICD-10-PCS; 2024-02-22)
PROC: B2151ZZ Fluoroscopy of Left Heart using Low Osmolar Contrast (ICD-10-PCS; 2024-02-22)
PROC: 0PS004Z Reposition Sternum with Internal Fixation Device, Open Approach (ICD-10-PCS; 2024-02-25)
PROC: 02HV33Z Insertion of Infusion Device into Superior Vena Cava, Percutaneous Approach (ICD-10-PCS; 2024-02-25)
PROC: 02100Z9 Bypass Coronary Artery, One Artery from Left Internal Mammary, Open Approach (ICD-10-PCS; principal; 2024-02-25 17:12)
PROC: 021109W Bypass Coronary Artery, Two Arteries from Aorta with Autologous Venous Tissue, Open Approach (ICD-10-PCS; 2024-02-25 17:12)
PROC: 06BQ4ZZ Excision of Left Saphenous Vein, Percutaneous Endoscopic Approach (ICD-10-PCS; 2024-02-25 17:12)
PROC: 5A09357 Assistance with Respiratory Ventilation, Less than 24 Consecutive Hours, Continuous Positive Airway Pressure (ICD-10-PCS; 2024-03-01)
PROC: 5A09357 Assistance with Respiratory Ventilation, Less than 24 Consecutive Hours, Continuous Positive Airway Pressure (ICD-10-PCS; 2024-03-02)
DX: I25.10 Atherosclerotic heart disease of native coronary artery without angina pectoris (principal); I21.4 Non-ST elevation (NSTEMI) myocardial infarction; I50.23 Acute on chronic systolic (congestive) heart failure; J98.11 Atelectasis; N17.9 Acute kidney failure, unspecified; Z68.42 Body mass index [BMI] 45.0-49.9, adult; I11.0 Hypertensive heart disease with heart failure; E11.65 Type 2 diabetes mellitus with hyperglycemia; E66.01 Morbid (severe) obesity due to excess calories; E78.5 Hyperlipidemia, unspecified; G47.33 Obstructive sleep apnea (adult) (pediatric); I25.5 Ischemic cardiomyopathy; D72.829 Elevated white blood cell count, unspecified; E78.00 Pure hypercholesterolemia, unspecified; F06.4 Anxiety disorder due to known physiological condition; Z87.891 Personal history of nicotine dependence; I25.2 Old myocardial infarction; Z79.82 Long term (current) use of aspirin; Z79.899 Other long term (current) drug therapy
CPT/HCPCS: 32551; 36415; 36600; 71045; 80048; 80053; 80061; 82306; 82330; 82435; 82607; 82803; 82947; 82948; 83036; 83605; 83735; 83880; 84100; 84132; 84295; 84443; 85018; 85025; 85027; 85347; 85384; 85610; 85730; 86850; 86900; 86901; 86923; 87641; 93005; 93306; 93312; 93318; 93325; 93458; 93880; 94002; 94003; 94010; 94150; 94640; 94664; 99156; 99157; A7048; C1769; C1894; G0378; J0171; J0360; J0612; J0690; J0696; J1250; J1644; J1650; J1815; J1940; J2001; J2250; J2270; J2440; J2704; J2720; J2919; J3010; J3301; J3475; J3480; J3490; J7030; J7040; J7050; J7060; Q9967; A4315; A4452; A4510; A4649; A4930; A6204; A6219; A9900; C1713; C1776; C1887; G0168; J3370; Q9965

== ENCOUNTER 2024-03-06 00:46 | Inpatient (IN) | payer BC ==
[2024-03-06] VITALS (12 sets, daily range): BP systolic 118–142; BP diastolic 70–86; PULSE 88–101; RESP 18–20; O2SAT 94–98
[~2024-03-06] VITALS: Ht 172.7 cm; Wt 121.7 kg
[~2024-03-06 00:46] MED LIST: ASPI-1005 PO; ATOR40TA69 PO; DAPA10TA PO; FURO20TA6 PO; LOSA-417 PO; METF750T46 PO; METO25 PO
[2024-03-06] MEDS: NITROGLYCERIN 1GM OINT 1 INCH/1GM TD ONE (01:29)
[2024-03-06 01:33] LABS: BASOPHILS # (AUTO) 0.03 K/uL (0.00-0.20); BASOPHILS % (AUTO) 0.2 % (0.0-5.0); EOSINOPHILS # (AUTO) 0.23 K/uL (0.00-0.70); EOSINOPHILS % (AUTO) 1.6 % (0.0-8.0); HEMATOCRIT 34.2 % (42-54); IMMATURE GRANULOCYTE ABSOLUTE 0.22 K/uL (0-1); LYMPHOCYTES # (AUTO) 2.1 K/uL (1.0-4.8); LYMPHOCYTES % (AUTO) 14.1 % (21.0-51.0); MEAN CORPUSCULAR HEMOGLOBIN 28.7 pg (27.0-33.0); MEAN CORPUSCULAR HGB CONC 33.6 g/dL (32.0-36.0); MEAN CORPUSCULAR VOLUME 85.3 fL (79-99); MONOCYTES # (AUTO) 0.7 K/uL (0.1-1.0); MONOCYTES % (AUTO) 4.8 % (3.0-13.0); NEUTROPHILS # (AUTO) 11.4 K/uL (1.8-7.7); NEUTROPHILS % (AUTO) 77.8 % (40.0-77.0); PLATELET COUNT (AUTO) 402 K/uL (130-400); RED BLOOD CELL COUNT(AUTO) 4.01 MIL/uL (4.50-6.20); RED CELL DISTRIBUTION WIDTH 13.8 % (11.0-15.5); WHITE BLOOD COUNT (AUTO) 14.7 K/uL (4.8-10.8)
[2024-03-06 01:44] LABS: APPEARANCE,URINE CLEAR (CLEAR); BILIRUBIN,URINE NEGATIVE (NEGATIVE); COLOR,URINE YELLOW (YELLOW); GLUCOSE, URINE (UA) >=1000 mg/dL (NEGATIVE); KETONES,URINE NEGATIVE (NEGATIVE); LEUKOCYTE ESTERASE ,URINE 75 Leu/uL (NEGATIVE); NITRATE,URINE NEGATIVE (NEGATIVE); OCCULT BLOOD,URINE NEGATIVE (NEGATIVE); PH,URINE 5.5 (5.0-8.0); PROTEIN,URINE 30 mg/dL (NEGATIVE); UROBILINOGEN,URINE 0.2 mg/dL (0.2-1.0)
[2024-03-06 01:46] LABS: ADD UA MICROSCOPIC YES
[2024-03-06 01:48] LABS: PROTHROMBIN TIME 10.8 SEC (9.6-11.6)
[2024-03-06 01:49] LABS: CREATININE 1.1 mg/dL (0.5-1.3); PARTIAL THROMBOPLASTIN TIME 25.1 SEC (26.3-35.5); POTASSIUM 4.8 mmol/L (3.5-5.1)
[2024-03-06 01:51] LABS: BACTERIA,URINE RARE /HPF (None Seen); SQUAMOUS EPITHELIAL CELL,UR RARE /HPF (0-2)
[2024-03-06 01:52] LABS: INFLUENZA TYPE A Negative For Type A (NEGATIVE); INFLUENZA TYPE B Negative For Type B (NEGATIVE)
[2024-03-06 01:55] LABS: ALBUMIN 2.5 g/dL (3.5-5.0); BILIRUBIN,TOTAL 0.8 mg/dL (0.2-1.0); TOTAL PROTEIN, SERUM 7.1 g/dL (6.0-8.3)
[2024-03-06 01:57] LABS: B-TYPE NATRIURETIC PEPTIDE 2090 pg/mL (0-100)
[2024-03-06] MEDS: FUROSEMIDE 40MG VIAL IV ONE (01:57)
[2024-03-06 02:29] LABS: SARS-CoV-2, RNA, NAAT NEGATIVE SARS CoV-2 (NEGATIVE)
[2024-03-06] MEDS: METOPROLOL TARTRATE 1 MG/ML 5ML VIAL IV ONE (02:36)
[2024-03-06] MEDS: ATORVASTATIN 40 MG TABLET PO ONE (02:36)
[2024-03-06] MEDS: ASPIRIN 81MG CHEW TAB PO SCH ×2 (02:38→09:13)
[2024-03-06] MEDS: ASPIRIN 81MG CHEW TAB ONE (02:38)
[2024-03-06] MEDS: DEXMEDETOMIDINE 400MCG/NS100ML IV SCH (03:06)
[2024-03-06] MEDS: HEPARIN 25,000 UNITS/250ML D5W 250 ML IV SCH (03:23)
[2024-03-06] MEDS ORDERED: POTASSIUM CHLORIDE 20MEQ/100ML 100 ML IV PRN (04:00)
[2024-03-06] MEDS ORDERED: ONDANSETRON 4MG INJ IV PRN (04:00)
[2024-03-06] MEDS ORDERED: GUAIFENESIN-DM 200/20 MG 10 ML PO PRN (04:00)
[2024-03-06] MEDS ORDERED: DEXTROSE 50%-WATER 50 ML DISP.SYRIN IV PRN (04:00)
[2024-03-06] MEDS ORDERED: GLUCAGON 1MG KIT 1 MG ML IM PRN (04:00)
[2024-03-06] MEDS ORDERED: hydrALAZine 20MG/ML VIAL IV PRN (04:00)
[2024-03-06] MEDS: IpraTROPium/alBUTERol SULFATE 3 ML SOLUTION IH SCH (06:49)
[2024-03-06 07:48] LABS: BASOPHILS # (AUTO) 0.02 K/uL (0.00-0.20); BASOPHILS % (AUTO) 0.1 % (0.0-5.0); EOSINOPHILS # (AUTO) 0.29 K/uL (0.00-0.70); EOSINOPHILS % (AUTO) 1.8 % (0.0-8.0); HEMATOCRIT 35.7 % (42-54); IMMATURE GRANULOCYTE ABSOLUTE 0.22 K/uL (0-1); LYMPHOCYTES # (AUTO) 0.8 K/uL (1.0-4.8); LYMPHOCYTES % (AUTO) 4.9 % (21.0-51.0); MEAN CORPUSCULAR HEMOGLOBIN 28.9 pg (27.0-33.0); MEAN CORPUSCULAR HGB CONC 33.6 g/dL (32.0-36.0); MONOCYTES # (AUTO) 0.5 K/uL (0.1-1.0); MONOCYTES % (AUTO) 3.3 % (3.0-13.0); NEUTROPHILS % (AUTO) 88.5 % (40.0-77.0); PLATELET COUNT (AUTO) 438 K/uL (130-400); RED BLOOD CELL COUNT(AUTO) 4.15 MIL/uL (4.50-6.20); RED CELL DISTRIBUTION WIDTH 13.8 % (11.0-15.5); WHITE BLOOD COUNT (AUTO) 15.9 K/uL (4.8-10.8)
[2024-03-06 08:02] LABS: ALBUMIN 2.7 g/dL (3.5-5.0); BILIRUBIN,TOTAL 1.2 mg/dL (0.2-1.0); CREATININE 1.2 mg/dL (0.5-1.3); MAGNESIUM 1.8 mg/dL (1.80-2.40); POTASSIUM 4.4 mmol/L (3.5-5.1); TOTAL PROTEIN, SERUM 7.3 g/dL (6.0-8.3)
[2024-03-06 08:16] LABS: B-TYPE NATRIURETIC PEPTIDE 2030 pg/mL (0-100)
[2024-03-06] MEDS ORDERED: cefTRIAXone 1G VIAL 1 GM in 0.9%NACL 50ML 50 ML IV SCH (09:00)
[2024-03-06] MEDS: METOPROLOL TARTRATE 25 MG TAB PO SCH (09:13)
[2024-03-06] MEDS: FUROSEMIDE 20MG VIAL IV SCH (09:13)
[2024-03-06] MEDS: LOSARTAN 25 MG TABLET PO SCH (09:13)
[2024-03-06] MEDS: FAMOTIDINE 20MG VIAL IV SCH (09:13)
[2024-03-06] MEDS: cefTRIAXone 1G VIAL IVPB SCH (09:14)
[2024-03-06] MEDS: INSULIN HUMULIN R 100 UNIT/ML 3ML SQ SCH (09:24)
[2024-03-06] MEDS ORDERED: IOHEXOL-350 75 ML VIAL IV ONE ×2 (09:55→10:28)
[2024-03-06] MEDS: LEVOFLOXACIN 500 MG TABLET PO SCH (10:04)
[2024-03-06 10:19] LABS: INR 1.06 (0.85-1.15); PROTHROMBIN TIME 11.4 SEC (9.6-11.6)
[2024-03-06 10:20] LABS: PARTIAL THROMBOPLASTIN TIME 39.9 SEC (26.3-35.5)
[2024-03-06] MEDS: ZOSYN 3.375GM +NS 50ML IV SCH (11:10)
[2024-03-06 16:20] LABS: INR 1.15 (0.85-1.15); PROTHROMBIN TIME 12.3 SEC (9.6-11.6)
[2024-03-06 16:22] LABS: PARTIAL THROMBOPLASTIN TIME 77.4 SEC (26.3-35.5)
[2024-03-06] MEDS: MUPIROCIN OINTMENT 22 GM TUBE TP SCH (22:24)
[2024-03-06] MEDS: ATORVASTATIN 40 MG TABLET PO SCH (22:24)
[2024-03-06 23:28] LABS: INR 1.16 (0.85-1.15); PROTHROMBIN TIME 12.4 SEC (9.6-11.6)
[2024-03-06 23:29] LABS: PARTIAL THROMBOPLASTIN TIME 81.2 SEC (26.3-35.5)
[2024-03-07] VITALS (17 sets, daily range): BP systolic 120–142; BP diastolic 48–89; PULSE 76–97; RESP 18–24; O2SAT 95–98
[2024-03-07] MEDS: acetaMINOPHEN 325 MG TAB PO PRN (00:47)
[2024-03-07 04:50] LABS: HEMATOCRIT 29.7 % (42-54); MEAN CORPUSCULAR HEMOGLOBIN 28.4 pg (27.0-33.0); MEAN CORPUSCULAR VOLUME 86.1 fL (79-99); RED BLOOD CELL COUNT(AUTO) 3.45 MIL/uL (4.50-6.20); RED CELL DISTRIBUTION WIDTH 13.8 % (11.0-15.5); WHITE BLOOD COUNT (AUTO) 10.5 K/uL (4.8-10.8)
[2024-03-07 05:03] LABS: CREATININE 1.5 mg/dL (0.5-1.3); POTASSIUM 3.2 mmol/L (3.5-5.1)
[2024-03-07] MEDS ORDERED: POTASSIUM CHLORIDE 10% ELIXIR 20 MEQ/15 ML UDCUP PO PRN (06:00)
[2024-03-07] MEDS: KCL 20 MEQ ERTAB PO PRN (06:14)
[2024-03-07] MEDS: FUROSEMIDE 40MG VIAL IV SCH (08:59)
[2024-03-07] MEDS: CLOPIDOGREL 75MG TAB PO SCH (08:59)
[2024-03-07] MEDS: IpraTROPium/alBUTERol SULFATE 3 ML SOLUTION IH SCH (18:17)
[2024-03-07 18:23] LABS: INR 1.13 (0.85-1.15); PROTHROMBIN TIME 12.1 SEC (9.6-11.6)
[2024-03-07 18:24] LABS: PARTIAL THROMBOPLASTIN TIME 47.8 SEC (26.3-35.5)
[2024-03-08] VITALS (13 sets, daily range): BP systolic 117–142; BP diastolic 74–94; PULSE 84–95; RESP 16–23; O2SAT 97–100
[2024-03-08 03:34] LABS: HEMATOCRIT 31.6 % (42-54); MEAN CORPUSCULAR HEMOGLOBIN 28.3 pg (27.0-33.0); MEAN CORPUSCULAR HGB CONC 32.3 g/dL (32.0-36.0); MEAN CORPUSCULAR VOLUME 87.5 fL (79-99); RED BLOOD CELL COUNT(AUTO) 3.61 MIL/uL (4.50-6.20); RED CELL DISTRIBUTION WIDTH 13.9 % (11.0-15.5)
[2024-03-08 03:44] LABS: INR 1.11 (0.85-1.15); PROTHROMBIN TIME 11.9 SEC (9.6-11.6)
[2024-03-08 03:45] LABS: PARTIAL THROMBOPLASTIN TIME 50.4 SEC (26.3-35.5)
[2024-03-08 03:48] LABS: CREATININE 1.5 mg/dL (0.5-1.3); POTASSIUM 3.4 mmol/L (3.5-5.1)
[2024-03-08] MEDS: METOPROLOL SUCCINATE 50 MG TAB.SR.24H PO SCH (09:48)
[2024-03-08] MEDS: ENOXAPARIN SODIUM 40 MG/0.4 ML SYRINGE SQ SCH (09:49)
[2024-03-08] MEDS: FUROSEMIDE 40 MG TABLET PO SCH (09:50)
[2024-03-08] MEDS: KCL 20 MEQ ERTAB PO SCH (11:06)
[2024-03-08] MEDS: KCL 20 MEQ ERTAB PO ONE (13:25)
[2024-03-08] MEDS ORDERED: IpraTROPium/alBUTERol SULFATE 3 ML SOLUTION IH PRN (20:00)
[2024-03-09] VITALS (9 sets, daily range): BP systolic 121–138; BP diastolic 82–92; PULSE 88–94; RESP 18–22; O2SAT 94–100
[2024-03-09 03:53] LABS: HEMATOCRIT 33.3 % (42-54); MEAN CORPUSCULAR HEMOGLOBIN 28.3 pg (27.0-33.0); MEAN CORPUSCULAR HGB CONC 32.4 g/dL (32.0-36.0); MEAN CORPUSCULAR VOLUME 87.4 fL (79-99); RED BLOOD CELL COUNT(AUTO) 3.81 MIL/uL (4.50-6.20); WHITE BLOOD COUNT (AUTO) 10.9 K/uL (4.8-10.8)
[2024-03-09 04:09] LABS: ALBUMIN 2.6 g/dL (3.5-5.0); BILIRUBIN,TOTAL 0.8 mg/dL (0.2-1.0); CREATININE 1.7 mg/dL (0.5-1.3); INR 1.08 (0.85-1.15); MAGNESIUM 1.9 mg/dL (1.80-2.40); POTASSIUM 3.7 mmol/L (3.5-5.1); PROTHROMBIN TIME 11.6 SEC (9.6-11.6); TOTAL PROTEIN, SERUM 6.8 g/dL (6.0-8.3)
[2024-03-09 04:10] LABS: PARTIAL THROMBOPLASTIN TIME 26.1 SEC (26.3-35.5)
[2024-03-10] VITALS (8 sets, daily range): BP systolic 105–135; BP diastolic 57–93; PULSE 78–92; RESP 16–22; O2SAT 99
[2024-03-10 04:23] LABS: MEAN CORPUSCULAR HEMOGLOBIN 28.7 pg (27.0-33.0); MEAN CORPUSCULAR HGB CONC 32.7 g/dL (32.0-36.0); MEAN CORPUSCULAR VOLUME 87.8 fL (79-99); RED BLOOD CELL COUNT(AUTO) 3.76 MIL/uL (4.50-6.20); RED CELL DISTRIBUTION WIDTH 13.8 % (11.0-15.5); WHITE BLOOD COUNT (AUTO) 10.5 K/uL (4.8-10.8)
[2024-03-10 04:43] LABS: ALBUMIN 2.7 g/dL (3.5-5.0); BILIRUBIN,TOTAL 0.7 mg/dL (0.2-1.0); CREATININE 1.5 mg/dL (0.5-1.3); MAGNESIUM 1.8 mg/dL (1.80-2.40); POTASSIUM 3.6 mmol/L (3.5-5.1); TOTAL PROTEIN, SERUM 6.8 g/dL (6.0-8.3)
[2024-03-10] MEDS: MAGNESIUM 2GM PREMIX 50ML 50 ML IV PRN (06:51)
[2024-03-10] MEDS: PINDOLOL 5 MG TAB PO SCH (20:32)
[2024-03-11] VITALS (8 sets, daily range): BP systolic 120–148; BP diastolic 76–90; PULSE 74–96; RESP 16–18; O2SAT 96–100
[2024-03-11 03:44] LABS: HEMATOCRIT 32.5 % (42-54); MEAN CORPUSCULAR HEMOGLOBIN 27.9 pg (27.0-33.0); MEAN CORPUSCULAR HGB CONC 32.3 g/dL (32.0-36.0); MEAN CORPUSCULAR VOLUME 86.4 fL (79-99); RED BLOOD CELL COUNT(AUTO) 3.76 MIL/uL (4.50-6.20); RED CELL DISTRIBUTION WIDTH 13.9 % (11.0-15.5); WHITE BLOOD COUNT (AUTO) 10.1 K/uL (4.8-10.8)
[2024-03-11 04:05] LABS: ALBUMIN 2.6 g/dL (3.5-5.0); BILIRUBIN,TOTAL 0.6 mg/dL (0.2-1.0); CREATININE 1.7 mg/dL (0.5-1.3); MAGNESIUM 1.9 mg/dL (1.80-2.40); POTASSIUM 3.7 mmol/L (3.5-5.1); TOTAL PROTEIN, SERUM 6.8 g/dL (6.0-8.3)
[2024-03-11] MEDS: LOSARTAN 25 MG TABLET PO SCH (08:35)
[2024-03-11] MEDS: FUROSEMIDE 40 MG TABLET PO SCH (17:59)
[2024-03-11] MEDS ORDERED: BUMETANIDE 1 MG TAB PO SCH (21:00)
[2024-03-12] VITALS (10 sets, daily range): BP systolic 114–159; BP diastolic 53–80; PULSE 79–96; RESP 17–20; O2SAT 96–99
[2024-03-13] VITALS: BP 118/76; PULSE 91; RESP 20
[2024-03-13 04:00] VITALS: BP 138/73; PULSE 84; RESP 20
[2024-03-13 07:13] VITALS: PULSE 94; RESP 18; O2SAT 97
[2024-03-13 08:00] VITALS: O2SAT 99
[2024-03-13 08:27] VITALS: BP 126/77; PULSE 97
[2024-03-13 11:50] VITALS: BP 129/75; PULSE 93; RESP 16
[2024-03-13] MEDS ORDERED: CLOP-31 PO (13:33)
[2024-03-13] MEDS ORDERED: LOSA-417 PO (13:33)
[2024-03-13] MEDS ORDERED: PIND5 PO (13:33)
[2024-03-13] MEDS ORDERED: FURO40TA7 PO (13:33)
== END 2024-03-13 18:00 | disposition home or self-care (01) | DRG 280 ==
LOC: EDH 00:46 → EDHIP 03:49 → 2AH 12:18 → 4DH 03-11 15:10
PROVIDERS: ADMIT Internal Medicine; ATTEND Internal Medicine
DX: I11.0 Hypertensive heart disease with heart failure (principal); I50.43 Acute on chronic combined systolic (congestive) and diastolic (congestive) heart failure; I21.4 Non-ST elevation (NSTEMI) myocardial infarction; J81.0 Acute pulmonary edema; J96.91 Respiratory failure, unspecified with hypoxia; D68.59 Other primary thrombophilia; Z68.41 Body mass index [BMI] 40.0-44.9, adult; R65.10 Systemic inflammatory response syndrome (SIRS) of non-infectious origin without acute organ dysfunction; N30.00 Acute cystitis without hematuria; E44.1 Mild protein-calorie malnutrition; K57.92 Diverticulitis of intestine, part unspecified, without perforation or abscess without bleeding; L03.116 Cellulitis of left lower limb; N17.9 Acute kidney failure, unspecified; Z20.822 Contact with and (suspected) exposure to COVID-19; I25.5 Ischemic cardiomyopathy; E78.00 Pure hypercholesterolemia, unspecified; E11.65 Type 2 diabetes mellitus with hyperglycemia; G47.33 Obstructive sleep apnea (adult) (pediatric); B95.2 Enterococcus as the cause of diseases classified elsewhere; D64.9 Anemia, unspecified; D75.839 Thrombocytosis, unspecified; E11.51 Type 2 diabetes mellitus with diabetic peripheral angiopathy without gangrene; Z87.442 Personal history of urinary calculi; Z95.1 Presence of aortocoronary bypass graft; I45.10 Unspecified right bundle-branch block; K76.0 Fatty (change of) liver, not elsewhere classified; I25.2 Old myocardial infarction; Z87.891 Personal history of nicotine dependence; Z79.899 Other long term (current) drug therapy; Z83.3 Family history of diabetes mellitus
CPT/HCPCS: 36415; 71045; 71046; 71270; 80048; 80053; 81001; 82948; 83605; 83735; 83880; 84132; 84484; 85025; 85027; 85378; 85610; 85730; 87070; 87076; 87086; 87186; 87635; 87804; 93005; 93306; 93970; 94640; 94660; 94664; 96365; 96375; G0378; J0696; J1644; J1650; J1815; J1940; J2543; J3475; J3490; Q9967